=== PATIENT | female | born 1955 | race African-American/Black ===

== ENCOUNTER 2023-09-01 11:15 | Emergency (ER) | payer MEDICARE, MEDICAID, SELFPAY ==
--- NOTE | ~2023-09-01 | CT_ITS ---
EXAMINATION: CT HEAD WITHOUT CONTRAST CLINICAL INFORMATION: 67-year-old female with intermittent slurred speech and difficulty walking COMPARISON: None available. TECHNIQUE: Contiguous axial imaging was performed from the skull base to vertex without intravenous administration of contrast. This CT examination was performed using dose optimization techniques as appropriate, variously including the following: *Automated exposure control *Adjustment of mA and/or kV according to patient size (this includes techniques or standardized protocols for targeted exams where dose is matched to indication/reason for exam; i.e. extremities or head) *Use of iterative reconstruction technique DLP: 573 mGy-cm FINDINGS: There is no evidence of acute intracranial hemorrhage or edematous territorial infarction. Can-white matter differentiation is preserved. There is no abnormal attenuation within the brain parenchyma. The ventricles are normal in morphology and size. No evidence for obstructive hydrocephalus. No abnormal mass effect or midline shift. No extra-axial fluid collections. No acute soft tissue or osseous abnormalities. The mastoid air cells and visualized paranasal sinuses are clear. CT/CT head/brain wo IV con IMPRESSION: 1. No evidence of acute intracranial hemorrhage or edematous territorial infarction.
--- NOTE | ~2023-09-01 | XR_ITS ---
EXAMINATION: XR CHEST CLINICAL INFORMATION: Chest pain and dyspnea COMPARISON: None available. TECHNIQUE: 2 views of the chest were obtained. FINDINGS: Heart size normal. Aorta is mildly dilated and unfolded. No gross CHF. No pleural effusions or lung masses. There may be some scattered areas of atelectasis in the right lung but no gross consolidation. XR/XR chest 2V IMPRESSION: No acute intrathoracic disease. Mildly dilated aorta.
--- NOTE | ~2023-09-01 | CT_ITS ---
EXAMINATION: CT ANGIOGRAM CHEST CLINICAL INFORMATION: Chest pain and difficulty breathing COMPARISON: Chest radiograph earlier today TECHNIQUE: Multiple axial images were obtained through the chest after the administration of 70 mL of Omnipaque 350 intravenous contrast. Extensive vascular post-processing including two-dimensional and three-dimensional reformatted images were created and reviewed on an independent workstation. This CT examination was performed using dose optimization techniques as appropriate, variously including the following: *Automated exposure control *Adjustment of mA and/or kV according to patient size (this includes techniques or standardized protocols for targeted exams where dose is matched to indication/reason for exam; i.e. extremities or head) *Use of iterative reconstruction technique DLP: 626 mGy-cm VASCULAR: The aorta is mildly dilated in ectatic measuring 3.9 cm in greatest transverse dimension on a 3-D model created with measurements made perpendicular to a center line. There is no evidence of aortic dissection or intramural hematoma. A two-vessel branching pattern of the aortic arch is seen with a short common trunk involving the brachiocephalic and left carotid. The great vessels are ectatic but widely patent. The small visualized portion of the abdominal aorta is unremarkable with widely patent celiac, SMA and single renal arteries seen bilaterally. Although not carried out for evaluation of the pulmonary arteries or pulmonary veins, they are moderately well seen. No proximal or central pulmonary emboli are present. No significant thrombus is seen in the left atrial appendage. LUNGS AND PLEURA: Some mild bronchial thickening is present. In the right upper lobe anterolaterally there is an area of atelectasis and traction bronchiectasis with some subpleural cystic changes. Mild traction bronchiectasis is noted at the lung bases. No gross consolidations or suspicious lung masses are seen. No pleural effusions. MEDIASTINUM: Thyroid appears unremarkable. No mediastinal or hilar lymphadenopathy seen. AXILLA: No lymphadenopathy. Surgical clips are present in the region of the right breast with skin thickening. UPPER ABDOMEN: Unremarkable. OSSEOUS STRUCTURES: Unremarkable. CT/CT angio chest aorta IMPRESSION: 1. No evidence of aortic aneurysm, aortic dissection or intramural hematoma. 2. No proximal or central pulmonary emboli are seen. 3. Incidental note made of mild bronchial thickening, traction bronchiectasis and subpleural cystic changes in the right upper lobe. 4. Surgical clips in the right breast with skin thickening. Fleischner guidelines were followed.
--- NOTE | 2023-09-01 11:16 | ECG_ITS ---
Test Reason : CHEST PIN Blood Pressure : / mmHG Vent. Rate : 073 BPM Atrial Rate : 073 BPM P-R Int : 208 ms QRS Dur : 082 ms QT Int : 380 ms P-R-T Axes : 008 -06 -22 degrees QTc Int : 418 ms Normal sinus rhythm Minimal voltage criteria for LVH, may be normal variant ( R in aVL ) Borderline ECG No previous ECGs available Referred By: Generic ED Physician Electronically Signed By:MARJAN DOWNS MD
--- NOTE | 2023-09-01 11:25 | ED.CHESTPAIN ---
HPI - Chest Pain General Chief Complaint: General Medical Stated Complaint: chest pain Time Seen by Provider: 09/01/23 13:38 Source: patient Mode of arrival: ambulatory Limitations: no limitations History of Present Illness HPI narrative: 67 yo female with PMH of HTN, DM on baby aspirin daily comes in with multiple complaints over the past 1 month. She notes headaches that run from the front of her head down into the chest then into the L side of arm and left leg. She has a hard time sleeping and feels like she has sinus drainage. She also notes at time she has a hard time walking and her speech seems different now. She finally called her doctors office and they told her they thought her speech was different and she was instructed to come to the ED. She does not have a hx of known strokes. She also had a dry cough for the last month has chronically been on 20mg lisinopril. She feels more fatigued and short of breath when she is walking but no chest pain with exertion. took her meds this AM complaint: other Onset (ago): month(s) (1) Timing of current episode: episodic Prior episodes: Yes Onset: during rest and during exertion Pain location: substernal Pain radiation: left arm (left leg) Severity: moderate Quality: aching Relieving factors: rest Exacerbating factors: exertion, palpation and movement Associated symptoms: dyspnea and leg swelling Treatment prior to arrival: none Related Data Previous Rx's ?Medication ?Instructions ?Recorded albuterol sulfate 90 mcg/actuation 2 puff inhalation QID PRN 09/01/23 aerosol inhaler shortness of breath or wheezing #6.7 grams amoxicillin 875 mg-potassium 1 tab PO BID #14 tabs 09/01/23 clavulanate 125 mg tablet hydrochlorothiazide 12.5 mg tablet 12.5 mg PO DAILY #30 tabs 09/01/23 Allergies Allergy/AdvReac Type Severity Reaction Status Date / Time ibuprofen [From Motrin] AdvReac Stomach Verified 09/01/23 11:28 Upset Review of Systems Review of Systems: Constitutional : No Weight loss, No Fever, No Chills ENT/Mouth : No sore throat, No Rhinorrhea Eyes: No Eye Pain, No Swelling, pos sinus pain, pos congestion Cardiovascular : pos Chest Pain, pos SOB, pos Dyspnea on Exertion, No Orthopnea, pos Edema, No Palpitations Respiratory : No Cough, No Sputum Gastrointestinal : no Nausea, No Vomiting, No Diarrhea, No abdominal Pain, No Hematochezia, No Melena Genitourinary : No Dysuria, No Urinary Frequency Musculoskeletal : No joint pain, pos Myalgias, No Joint Swelling Skin : No Skin Lesions, No rash Neuro : No Weakness, No Numbness, No Dizziness, pos Headache Psych : No Anxiety/Panic, No Depression Heme/Lymph: No Bruising, No Lymphadenopathy Endocrine : No Polyuria, No Polydipsia All other systems reviewed and are negative [facility] Past Medical History Attestation statement: The following information was validated with the patient. Medical History HTN (hypertension) Diabetes Social History Social History (Updated 09/01/23 @ 14:02 by Carlene Messina DO) Alcohol intake: current Alcohol intake frequency: 3 or more drinks per day Alcohol type: beer Patient Tobacco Use Status: Never used Tobacco Smoked in Last 30 Days: No Use of substances other than those prescribed or required for medical reasons: No Advance Directives: No Advance Directives Information Provided: No Physical Exam Vital Signs: Vital Signs: Last Vital Signs Temp 98 F 09/01/23 11:26 Pulse 72 09/01/23 13:59 Resp 18 09/01/23 13:59 BP 160/106 H 09/01/23 13:59 Pulse Ox 97 09/01/23 13:59 O2 Del Method Room Air 09/01/23 13:59 BMI result Body Mass Index 40.2 NIH Stroke Scale Internal: Initial- Upon Arrival Level of Consciousness: Alert Level of Consciousness Questions: Answers both questions correctly Level of Consciousness Commands: Performs both tasks correctly Best Gaze: Normal Visual: No visual loss Facial Palsy: Normal Motor Arm (Right): No drift Motor Arm (Left): No drift Motor Leg (Right): No drift Motor Leg (Left): No drift Limb Ataxia: Absent Sensory: Normal Best Language: No aphasia Dysarthia: Normal Extinction and Inattention: No abnormality Score: 0 Course Course Course Narrative: RME:?67 yo female w/ hx of REGGIE on CPAP here for eval of left sided chest pain and cough x 1 mo. admits she is SOB at baseline however this has been worsening over the last month. no known sick contacts. denies TAMEZ, vision changes, fever, chills. hypertensive in triage- took BP meds this morning. increased effort of breathing. lungs cta b/l. no crackles. nonpitting edema to LLE. labs, viral serology, CXR, EKG ordered Full HPI, ROS and PE to be performed by the primary ED provider. Medications Administered Discontinued Medications Generic Name Dose Route Start Last Admin Trade Name Jose Luis PRN Reason Stop Dose Admin Iohexol 100 ml 09/01/23 14:27 09/01/23 14:28 Iohexol 350 Mg/Ml 100 Ml Infus..Btl IV 09/01/23 14:28 85 ml ONCE ONE Administration Medical Decision Making Medical Decision Making [facility] Narrative: 67 yo female with PMH of HTN, DM here with multiple complaints over the past month - she has no focal deficits on exam her NIH is 0. The patient has chest pain and dyspnea but it is pain that radiates down from the head. She reports intermittent difficulty walking and speech issues. I am going to obtain CT head for possible old stroke, CTA given aorta pathology on CXR. Troponin, EKG, BNP, H/H. She is overall not toxic. No hypoxia or tachycardia. Has swelling just around ankles. Differential Diagnosis Differential Diagnoses: The differential diagnosis associated with the presentation includes stroke in past month, aorta problem ,MSK pain, viral syndrome Admission/Observation Consideration of admission/observation: Escalation of care including admission/observation considered 1 month of complaints no stroke seen on CT head can be worked up as outpatient will continue baby aspirin CTA shows possible bronchitis will start on inhaler and augmentin given BP will add on HCTZ Lab Data [facility] Lab Attestation statement: I reviewed the patient's lab results. 09/01/23 11:43 09/01/23 11:43 Labs: Lab Results 09/01/23 Range/Units 11:43 WBC 6.4 (4.8-10.8) X10*3/uL RBC 5.08 (4.20-5.50) X10*6/uL Hgb 14.5 (12.0-16.0) g/dl Hct 44.6 (37.0-47.0) % MCV 87.8 (80.0-98.0) fL MCH 28.5 (27.0-33.0) pg MCHC 32.5 (31.0-35.0) g/dl RDW 16.4 H (11.0-16.0) % Plt Count 241 (160-400) X10*3/uL MPV 8.9 L (9.4-12.3) fL Immature Gran % (Auto) 0.5 H (0.0-0.4) % Neut % (Auto) 56.5 (45-73) % Lymph % (Auto) 29.9 (20-40) % [place]edar % (Auto) 10.2 (2-11) % Eos % (Auto) 2.0 (0-4) % Baso % (Auto) 0.9 (0-2) % Lymph # (Auto) 1.9 (1.2-4.9) X10*3/uL [place]edar # (Auto) 0.7 (0.1-1.2) X10*3/uL Eos # (Auto) 0.1 (0.0-0.4) X10*3/uL Baso # (Auto) 0.1 (0.0-0.2) X10*3/uL Abs Immat Gran (auto) 0.03 (0.00-0.03) X10*3/uL Absolute Neuts (auto) 3.6 (2.0-8.3) x10*3/uL Absolute Nucleated RBC 0.000 (0.0-0.012) X10*3/uL Nucleated RBC % (auto) 0.0 (0.0-0.2) /100WBC PT 11.0 L (11.1-13.3) SEC INR 0.9 (0.9-1.1) Sodium 140 (135-145) mmol/L Potassium 3.9 (3.3-5.1) mmol/L Chloride 106 (96-108) mmol/L Carbon Dioxide 24 (22-29) mmol/L Anion Gap 14 (12-20) BUN 13 (9-16) mg/dL Creatinine 0.81 (0.5-1.4) mg/dL Estim Creat Clear Calc 82.3 Estimated GFR > 60 Random Glucose 122 H (60-115) mg/dL Calcium 9.3 (8.4-10.2) mg/dL Magnesium 2.1 (1.6-2.6) mg/dL Total Bilirubin 0.3 (0.0-1.0) mg/dL AST 20 (5-31) U/L ALT 19 (0-31) U/L Alkaline Phosphatase 104 (39-117) U/L Troponin I High Sens < 2.7 (<3.5-17.0) ng/L B-Natriuretic Peptide 52 (<100) pg/mL Total Protein 7.3 (6.5-8.0) g/dL Albumin 3.7 (3.5-5.0) g/dL Lipase 31 (8-78) U/L Influenza Type A (PCR) NEGATIVE (Negative) Influenza Type B (PCR) NEGATIVE (Negative) RSV RNA Qual (PCR) NEGATIVE (Negative) SARS-CoV-2 RNA (RT-PCR) NEGATIVE (Negative) Independent Interpretation I performed an independent interpretation of an: EKG, Plain X-Ray (normal ) and CT Scan (no dissection or aneurysm no stroke) Interpretation: Rate: 73 Rhythm: NSR [place]: left, LVH Normal P waves. Normal JESSICA. Normal QRS complex. ST T wave : nonspecific ST T wave changes III and aVF, no THI qTC: normal prior studies: no acute ischemia The study has been interpreted contemporaneously by me. . Radiology Impression Discussion of test interpretation with radiology: I have reviewed the radiologist's reading. Prescription Management I considered prescription management with: Antibiotic and Other Discharge Plan Discharge Clinical Impression: Acute dyspnea, Hypertension, Bronchitis Patient Disposition: Home, Self-Care Instructions: Acute Bronchitis (ED), Chronic Hypertension (ED), Dyspnea (ED) Additional Instructions: CT scan of the head does not show a stroke. the CT scan of your chest does show bronchitis will start on antibiotic and inhaler. you also have elevated blood pressures I am going to add on a new blood pressure medication. continue 81mg of aspirin daily. follow up with your doctor in the next week given 1 month of symptoms for further workup including ECHO of your heart and carotid ultrasounds return for any worsening symptoms or concern On amoxicillin-clavulanate, softer bowel movements are to be expected. Call your provider if you move your bowels more than 4 times a day, your bowel movements are almost all liquid, or you get a rash.? Prescriptions: New amoxicillin-pot clavulanate 875-125 mg tablet 1 tab PO BID Qty: 14 0RF hydrochlorothiazide 12.5 mg tablet 12.5 mg PO DAILY Qty: 30 0RF albuterol sulfate 90 mcg/actuation HFA aerosol inhaler 2 puff inhalation QID PRN (Reason: shortness of breath or wheezing) Qty: 6.7 0RF Print Language: Moldovan
[2023-09-01 11:26] VITALS: BP 169/109; PULSE 74; RESP 22; TEMP 36.6; O2SAT 100; BMI 40.2
[2023-09-01 11:49] LABS: MANUAL DIFF FLAG NO
[2023-09-01 11:53] LABS: Basophils Absolute Auto 0.1 X10*3/uL (0.0-0.2); Basophils Percent Auto 0.9 % (0-2); Eosinophils Absolute Auto 0.1 X10*3/uL (0.0-0.4); Hematocrit 44.6 % (37.0-47.0); Hemoglobin 14.5 g/dl (12.0-16.0); Imm Gran Abs Auto 0.03 X10*3/uL (0.00-0.03); Imm Gran Pct Auto 0.5 % (0.0-0.4); Lymphocytes Absolute Auto 1.9 X10*3/uL (1.2-4.9); Lymphocytes Percent Auto 29.9 % (20-40); Mean Corpuscular HGB Conc 32.5 g/dl (31.0-35.0); Mean Corpuscular Hemoglobin 28.5 pg (27.0-33.0); Mean Corpuscular Volume 87.8 fL (80.0-98.0); Mean Platelet Volume 8.9 fL (9.4-12.3); Monocytes Absolute Auto 0.7 X10*3/uL (0.1-1.2); Monocytes Percent Auto 10.2 % (2-11); Neutrophils Absolute Auto 3.6 x10*3/uL (2.0-8.3); Neutrophils Percent Auto 56.5 % (45-73); Platelet Count 241 X10*3/uL (160-400); Red Blood Count 5.08 X10*6/uL (4.20-5.50); Red Cell Distribution Width 16.4 % (11.0-16.0); White Blood Count 6.4 X10*3/uL (4.8-10.8)
[2023-09-01 11:59] LABS: INTERNATIONAL NORM RATIO 0.9 (0.9-1.1)
[2023-09-01 12:09] LABS: Alanine Aminotransferase 19 U/L (0-31); Albumin Level 3.7 g/dL (3.5-5.0); Alkaline Phosphatase 104 U/L (39-117); Anion Gap 14 (12-20); Aspartate Amino Transferase 20 U/L (5-31); Bilirubin Total 0.3 mg/dL (0.0-1.0); Blood Urea Nitrogen 13 mg/dL (9-16); Calcium 9.3 mg/dL (8.4-10.2); Carbon Dioxide 24 mmol/L (22-29); Chloride 106 mmol/L (96-108); Creatinine Clr Calc Pharmacy 82.3; Estimated Glomerular Filt Rate > 60; Glucose Random 122 mg/dL (60-115); Lipase 31 U/L (8-78); Magnesium 2.1 mg/dL (1.6-2.6); Potassium 3.9 mmol/L (3.3-5.1); Sodium 140 mmol/L (135-145); Total Protein 7.3 g/dL (6.5-8.0)
[2023-09-01 12:15] LABS: B Type Natriuretic Peptide 52 pg/mL (<100)
[2023-09-01 12:18] LABS: Troponin-I High Sensitivity < 2.7 ng/L (<3.5-17.0)
[2023-09-01 12:30] LABS: Influenza A PCR NEGATIVE (Negative); Influenza B PCR NEGATIVE (Negative); Resp Syncy Virus RNA Qual PCR NEGATIVE (Negative); SARS COV2 PCR INHOUSE NEGATIVE (Negative)
[2023-09-01 13:59] VITALS: BP 160/106; PULSE 72; RESP 18; O2SAT 97
[2023-09-01] MEDS: iohexoL 350 MG/ML 100 ML INFUS..BTL IV (14:28)
[2023-09-01 17:14] VITALS: BP 140/91; PULSE 75; RESP 16; TEMP 36.6; O2SAT 97
== END 2023-09-01 17:33 | disposition home or self-care (01) ==
PROVIDERS: Physician Assistant Medical; Emergency Provider Emergency Medicine
DX: J40 Bronchitis, not specified as acute or chronic (principal); R07.89 Other chest pain; R51.9 Headache, unspecified; I10 Essential (primary) hypertension; R06.02 Shortness of breath; Z11.52 Encounter for screening for COVID-19; Z20.822 Contact with and (suspected) exposure to COVID-19; Z79.899 Other long term (current) drug therapy
CPT/HCPCS: 0241U; 70450; 71046; 71275; 80053; 83690; 83735; 83880; 84484; 85025; 85610; 93005; 99284; Q9967

== ENCOUNTER → 2023-09-01 11:16 | Outpatient (BNV) | payer OTHER, MEDICAID, SELFPAY | PROVIDERS: Emergency Provider Emergency Medicine; Visit Provider Internal Medicine Cardiovascular Disease | DX: R07.9 Chest pain, unspecified (principal) | CPT/HCPCS: 93010 ==